=== PATIENT | male | born 1950 | race Caucasian/White ===

== ENCOUNTER → 2019-07-26 08:29 | Outpatient (BNVA) | payer MEDICARE, OTHER, SELFPAY | PROVIDERS: Family Provider Family Medicine; PCP Family Medicine; Referring Provider Nurse Practitioner; Visit Provider Nurse Practitioner | DX: E78.00 Pure hypercholesterolemia, unspecified (principal); I10 Essential (primary) hypertension; F17.200 Nicotine dependence, unspecified, uncomplicated; Z76.89 Persons encountering health services in other specified circumstances | CPT/HCPCS: 80053; 80061; 85025 ==

== ENCOUNTER 2020-10-15 09:55 | Outpatient (CLI) | payer MEDICARE, OTHER, SELFPAY ==
--- NOTE | 2020-10-15 10:17 | XRR_ITS ---
PROCEDURE INFORMATION: Exam: XR Bilateral Hips Exam date and time: 10/15/2020 10:29 AM Age: 70 years old Clinical indication: Condition or disease; Other: Osteoarthritis TECHNIQUE: Imaging protocol: XR bilateral hips. Views: 2 views of hips with pelvis when performed. COMPARISON: CR XR lumbar spine 2-3V* [id number] 10/15/2020 10:33 AM FINDINGS: Bones/joints: No fracture or other acute bone or joint abnormalities are seen in the hips. There is a tiny benign bone cyst in the right subtrochanteric region. No significant degenerative disease or joint space narrowing is seen in the hips. Soft tissues: Unremarkable. XR/XR hip BI 3-4V wo/w pel [id number] IMPRESSION: No significant abnormalities are seen in the hips.
--- NOTE | 2020-10-15 10:18 | XRR_ITS ---
PROCEDURE INFORMATION: Exam: XR Lumbosacral Spine Exam date and time: 10/15/2020 10:29 AM Age: 70 years old Clinical indication: Condition or disease; Other: Osteoarthritis TECHNIQUE: Imaging protocol: XR of the lumbosacral spine. Views: 2 or 3 views. COMPARISON: No relevant prior studies available. FINDINGS: Bones/joints: No fracture or other acute bony abnormalities are seen in the lumbar spine. Chronic degenerative disease is present especially at L4-L5 and L5-S1 with disc space narrowing, sclerosis and osteophytes. There is sclerosis and hypertrophy of the lower lumbar facet joints. Soft tissues: Unremarkable. Organs: Multiple calcifications project on the lower pole of the left kidney. XR/XR lumbar spine 2-3V* [id number] IMPRESSION: 1. Left nephrolithiasis. 2. Chronic degenerative disease especially at L4-L5 and L5-S1.
== END 2020-10-15 09:56 | disposition home or self-care (01) ==
PROVIDERS: PCP Family Medicine; Visit Provider Family Medicine
DX: M19.90 Unspecified osteoarthritis, unspecified site (principal); N20.0 Calculus of kidney; M51.36 Other intervertebral disc degeneration, lumbar region
CPT/HCPCS: 72100; 73522

== ENCOUNTER 2023-05-30 12:58 | Emergency (ER) | payer MEDICARE, OTHER, SELFPAY ==
[2023-05-30 12:59] VITALS: BP 149/78; PULSE 102; TEMP 38.1; O2SAT 92; BMI 30.1
--- NOTE | 2023-05-30 13:07 | XRR_ITS ---
PROCEDURE INFORMATION: Exam: XR Lumbosacral Spine Exam date and time: 05/30/2023 1:28 PM Age: 72 years old Clinical indication: Low back pain; Additional info: Lbp, acute on chronic TECHNIQUE: Imaging protocol: Radiologic exam of the lumbosacral spine. Views: 2 or 3 views. COMPARISON: CR XR lumbar spine 2-3V* [id number] 10/15/2020 10:33 AM FINDINGS: Bones/joints: Spinal alignment is normal. Vertebral body height is maintained. No acute fracture. Moderate lower lumbar disc degeneration. Moderate lower lumbar facet spondylosis. The visible portion of the pelvis and sacrum is intact. Soft tissues: Unremarkable. Vasculature: Moderate aortic calcific plaque. XR/XR lumbar spine 2-3V* [id number] IMPRESSION: 1. No acute findings. 2. Moderate lower lumbar disc and facet degeneration.
--- NOTE | 2023-05-30 13:11 | ED_ITS ---
HPI - Back Pain/Injury 2 General: Chief Complaint: Back Pain/Injury Stated Complaint: LOW BACK PAIN Time Seen by Provider: 05/30/23 13:00 Source: patient and EMS Mode of arrival: EMS Limitations: no limitations History of Present Illness: Patient presents to the emergency department today brought by EMS for evaluation treatment of acute on chronic low back pain. Patient reports a long history of low back issues for which he typically goes to the chiropractor. He reports noticeable improvements of back pain after his chiropractic adjustment. He also reports using Tylenol for his pain with good response. Patient states that over the last week he seems to have acute worsening of his low back pain. EMS stated that he felt his coordination was off however, when asked to explain further, patient reports more of a weakness-for example, he was attempting to pull up his pants today and felt so weak he thought he was going to fall over. Patient denies radiating pain from his back. He denies tingling or numbness into the lower extremities. He has not noticed any swelling in the lower extremities. He does indicate a past medical history of kidney stones requiring lithotripsy. He states that since that time he had this dealt with urinary issues-including incontinence. However, patient denies any acute episodes of incontinence of either bowel or bladder over the past week. Patient denies falls or trauma over the last week. Patient confirms he still takes his atorvastatin and lisinopril but no other chronic medications. He confirms his listed allergy to Celebrex but, does not have allergies to other NSAIDs-he states he uses Tylenol because it seems to work better for his pain. Patient states he would not have come here normally but his chiropractor is on vacation for [place] and his friend called EMS because his friend thought he needed to get checked out. Patient denies pain at this time. Review of Systems 2 General: Reports: 10 or more systems reviewed and unremarkable except in HPI and below PFSH ED 2 PFSH: Medical History Current smoker Hypertension Hypercholesteremia Surgical History History of rotator cuff surgery bilateral Family History Father Cancer Social History Smoking and tobacco/nicotine status: current every day tobacco/nicotine user Alcohol intake: never Substance/Drug Use: never Physical Exam 2 Const: COMMON NORMALS: no acute distress, patient oriented x3 and alert HENMT: COMMON NORMALS: normocephalic, atraumatic and hearing grossly normal bilaterally HEAD & SCALP: normocephalic and atraumatic Eye: COMMON NORMALS: Equal, round and reactive pupils present, EOMs intact bilaterally and conjunctivae normal CONJUNCTIVA: Yes conjunctivae normal P UPIL: Yes Equal, round and reactive pupils present Neck/C-Spine: COMMON NORMALS: full ROM and no JVD Resp: COMMON NORMALS: normal respiratory effort, No retractions and No use of accessory muscles Cardio: COMMON NORMALS: no JVD and regular rate RATE: regular rate Back/Pelvis: OTHER: Patient with reproducible tenderness to the left lower back region. He was nontender on palpation to the upper back/thoracic region on palpation. No specific tenderness at the midline lumbar vertebral column on palpation. BACK IMAGE (MALE): 1. area indicated to have pain by pt Extremity: NARRATIVE EXTREMITY EXAM: Patient demonstrates full range of motion to his extremities. Patient is independently moving in the bed and independently maneuvers from a significantly reclined to a completely seated upright position without difficulty and without assistance. Patient is able to reach behind his back to show me the area to the left lower back where he has the most tenderness and also demonstrates ability to lean [id number] to try and determine the location of his pain. Neuro: COMMON NORMALS: patient oriented x3 SENSORIUM/ORIENTATION: Yes alert Psych: COMMON NORMALS: mental status grossly normal, Normal thought process present, cooperative and normal affect THOUGHT PROCESS: Normal thought process present Skin: COMMON NORMALS: no rashes or lesions noted and turgor normal N ARRATIVE SKIN EXAM: Patient has no edema or pitting edema in the lower extremities. GENERAL SKIN EXAM: no rashes or lesions noted and turgor normal Course 2 Vital Signs: Vital signs: Vital Signs Temperature 98.2 F 05/30/23 14:36 Pulse Rate 76 05/30/23 14:58 Blood Pressure 118/72 05/30/23 14:58 Pulse Oximetry 92 05/30/23 14:58 Oxygen Delivery Me thod Room Air 05/30/23 12:59 MDM - Back Pain/Injury Medical Decision Making Patient's lab work today is unremarkable. Urinalysis is clear. Patient's x-ray shows progression of degenerative disc disease through the lumbar region with progressing osteoarthritic changes now with noticeable facet narrowing as well. Discussed all this with the patient including comparison of a 2020 lumbar film from today. Discussed continued progressive changes which could be causing pinching of nerves locally in the low back but, warned it could also begin to affect the nerves that go down into the lower extremities. Patient had an elevated heart rate and elevated temperature upon arrival however, when I asked the nurse to recheck it his heart rate was 76 and temperature was 98.2. Patient currently has no pain here in the emergency department. However, his is now at bedside and begins telling me about multiple other symptoms she is concerned about. She states that the ambulance was called because the patient was acting confused and could not figure out how to get the [employer] game on television. She continued indicating multiple other concerns she had with the patient's health and in a short amount of time, the patient and the were quite agitated with one another. The stepped out of the room for a bit and the patient tells me that he was confused about the [employer] game because he thought the game started at 1130 (it was at noon), so, when he went to the [employer] channel at 1130 and it was not on he was indeed confused. However, he states he is not having a stroke. Patient showed no signs of neurological deficit, confusion, or slurred speech during his time here in the emergency room. He denies episodes of headache, visual changes, slurred speech, facial weakness, one-sided body weakness, chest pains or shortness of breath. Patient's returned and states that he is having cognitive declines and states that he will not answer her when she asked him questions sometimes and she says he is having TIAs. Patient again states he is taking all of his prescribed medications as he should be and denies symptoms of stroke or AR on reevaluation. I encouraged them to follow-up with primary care doctor in the next few days to have further discussion about the 's concerns as there are no findings of neurological deficit here on exam today and no acute concerns on his evaluation. Patient was offered prescriptions to help with acute on chronic low back pain until his chiropractor returns however, patient declined stating Tylenol works just fine. Patient was given return precautions and reiterated my recommendation to see primary care this week. Patient and verbalized understanding and agreement to treatment plan. Differential Diagnosis Likely lumbar radiculopathy and strain of lumbar region; Unlikely sciatica, renal colic, pyelonephritis or discitis Labs 05/30/23 Unknown 05/30/23 Unknown Radiology Impressions Lumbar Spine X-Ray 05/30/23 13:07 IMPRESSION: 1. No acute findings. 2. Moderate lower lumbar disc and facet degeneration. Laboratory Results WBC 7.56 10^3/uL (3.29-11.43) 05/30/23 Unknown RBC 5.13 10^6/uL (3.85-5.65) 05/30/23 Unknown Hgb 15.50 g/dL (11.27-16.99) 05/30/23 Unknown Hct 47.3 % (37-53) 05/30/23 Unknown MCV 92.2 fl (82-101) 05/30/23 Unknown MCH 30.2 pg (27-33) 05/30/23 Unknown MCHC 32.8 g/dL (30-55) 05/30/23 Unknown RDW 13.1 % (12.1-15.1) 05/30/23 Unknown Plt Count 192 10^3/cmm (157-399) 05/30/23 Unknown MPV 11.3 fL (7.4-10.4) H 05/30/23 Unknown Neut % (Auto) 61.7 % 05/30/23 Unknown Lymph % (Auto) 13.5 % 05/30/23 Unknown [place] % (Auto) 23.0 % 05/30/23 Unknown Eos % (Auto) 0.9 % 05/30/23 Unknown Baso % (Auto) 0.5 % 05/30/23 Unknown Neut # (Auto) 4.66 10^3/uL (1.8-7.7) 05/30/23 Unknown Lymph # (Auto) 1.0 10^3/uL (0.8-4.8) 05/30/23 Unknown [place] # (Auto) 1.7 10^3/uL (0.2-0.9) H 05/30/23 Unknown Eos # (Auto) 0.1 10^3/uL (0.0-0.8) 05/30/23 Unknown Baso # (Auto) 0.0 10^3/uL (0.0-0.1) 05/30/23 Unknown Nucleated RBC % (auto) 0 % 05/30/23 Unknown Nucleated RBCs # 0.0 /100WBC 05/30/23 Unknown Sodium 138 mmol/L (136-145) 05/30/23 Unknown Potassium 3.9 mmol/L (3.5-5.1) 05/30/23 Unknown Chloride 99 mmol/L (98-107) 05/30/23 Unknown Carbon Dioxide 26 mmol/L (22-29) 05/30/23 Unknown Anion Gap 16.9 (5-19) 05/30/23 Unknown BUN 16 mg/dL (8-23) 05/30/23 Unknown Creatinine 1.2 mg/dL (0.7-1.2) 05/30/23 Unknown GFR Calculation Not Reportable 05/30/23 Unknown Glucose 129 mg/dL (65-115) H 05/30/23 Unknown Calculated Osmolality 289 mOsm/kg (285-295) 05/30/23 Unknown Calcium 9.7 mg/dL (8.5-10.5) 05/30/23 Unknown Total Bilirubin 0.6 mg/dL (0.15-1.2) 05/30/23 Unknown AST 33 U/L (0-40) 05/30/23 Unknown ALT 26 U/L (0-41) 05/30/23 Unknown Alkaline Phosphatase 85 U/L (40-130) 05/30/23 Unknown Total Protein 7.3 g/dL (6.6-8.7) 05/30/23 Unknown Albumin 4.6 g/dL (3.5-5.2) 05/30/23 Unknown Globulin 2.7 g/dL (1.3-4.6) 05/30/23 Unknown Urine Color Yellow (Yellow) 05/30/23 12:15 Urine Appearance Clear (CLEAR) 05/30/23 12:15 Urine pH 5 (5-7) 05/30/23 12:15 Ur Specific [place] 1.025 (1.005-1.030) 05/30/23 12:15 Urine Protein Neg (Negative) 05/30/23 12:15 Urine Glucose (UA) Norm (Normal) 05/30/23 12:15 Urine Ketones Negative (Negative) 05/30/23 12:15 Urine Blood Neg (Negative) 05/30/23 12:15 Urine Nitrate Negative (Negative) 05/30/23 12:15 Urine Bilirubin Neg (Negative) 05/30/23 12:15 Urine Urobilinogen Norm mg/dL (Negative) 05/30/23 12:15 Ur Leukocyte Esterase Negative (Negative) 05/30/23 12:15 All radiology interpretation(s) finalized by discharge Discharge Plan Discharge Patient Disposition: Home Clinical Impression: Strain of lumbar region Qualifiers: Encounter type: initial encounter Qualified Code(s): S39.012A - Strain of muscle, fascia and tendon of lower back, initial encounter Condition: Stable Prescriptions: No Action zinc acetate 50 mg (zinc) Capsule 50 mg PO QAM Aspir-81 81 mg Tablet,Delayed Release (Dr/Ec) 81 mg PO BEDTIME Vitamin D3 25 mcg (1,000 unit) Capsule 25 mcg PO QAM Balance Of Nature Fruits 3 cap PO DAILY Balance Of Nature Veggies 3 cap PO DAILY atorvastatin 40 mg tablet 40 mg PO BEDTIME lisinopril-hydrochlorothiazide 10-12.5 mg tablet 1 tab PO BEDTIME Discharge Orders: Discharge ED (Routine); Ordered 05/30/23 Ordered By: Julissa Guaman Referrals: John Serrano MD [Primary Care Provider] - Discharge Diet: Usual diet Discharge Activity: Increase activity as tolerated Patient Instructions: Low Back Strain (ED) Activity Restrictions/Additional Instructions: Lab work today showed no signs of an elevated white blood cell count concerning for an active infection. Urinalysis is clear of any signs of infection as well. Your electrolytes are within normal limits and your kidney function is normal. The x-rays taken today of your low back shows continued progression of degenerative disc disease throughout the lumbar spine. You also have continued progression of osteoarthritic changes and facet narrowing. These can cause issues with pinched nerves which affect nerves in the low back region as well as affecting nerves which go down into your legs. You can use heating pads or ice packs as needed for comfort in addition to Tylenol. You did have a slightly elevated temperature upon arrival here today however, recheck of your vital signs showed resolution of any temperature but I encourage you to continue watching for new onset symptoms. You may have a very early viral illness as we have many here in the community at this time. If you have any change or worsening in your condition we do recommend to be seen and reevaluated. Please follow-up with your primary care this week for recheck of concerns from your evaluation here in the emergency department. Coding Level of Care Code ED [facility] for Zohra Lorenzana
[2023-05-30 13:21] LABS: Basophils % 0.5 %; Eosinophils # 0.1 10^3/uL (0.0-0.8); Eosinophils % 0.9 %; Hematocrit 47.3 % (37-53); Lymphocytes % 13.5 %; Mean Corpuscular HGB Conc 32.8 g/dL (30-55); Mean Corpuscular Hemoglobin 30.2 pg (27-33); Mean Corpuscular Volume 92.2 fl (82-101); Mean Platelet Volume 11.3 fL (7.4-10.4); Monocytes # 1.7 10^3/uL (0.2-0.9); Neutrophils # 4.66 10^3/uL (1.8-7.7); Neutrophils % 61.7 %; Nucleated Red Blood Cells % 0 %; Platelet Count 192 10^3/cmm (157-399); Red Blood Count 5.13 10^6/uL (3.85-5.65); Red Cell Distribution Width 13.1 % (12.1-15.1); White Blood Count 7.56 10^3/uL (3.29-11.43)
[2023-05-30] MEDS: ketorolac 30 mg/mL INJ IVP (13:31)
[2023-05-30 13:46] LABS: Alanine Aminotransferase 26 U/L (0-41); Albumin Level 4.6 g/dL (3.5-5.2); Alkaline Phosphatase 85 U/L (40-130); Anion Gap 16.9 (5-19); Aspartate Amino Transferase 33 U/L (0-40); Blood Urea Nitrogen 16 mg/dL (8-23); Calcium 9.7 mg/dL (8.5-10.5); Carbon Dioxide 26 mmol/L (22-29); Chloride 99 mmol/L (98-107); Creatinine Clr Calc Pharmacy 64.4496; Globulin 2.7 g/dL (1.3-4.6); Glucose 129 mg/dL (65-115); Osmolality Calculated 289 mOsm/kg (285-295); Potassium 3.9 mmol/L (3.5-5.1); Sodium 138 mmol/L (136-145); Total Bilirubin 0.6 mg/dL (0.15-1.2); Total Protein 7.3 g/dL (6.6-8.7)
[2023-05-30 14:22] LABS: Add Urine Microscopic? NO; Charge for UA Resulting for Rev
[2023-05-30 14:26] LABS: Bilirubin Urine Neg (Negative); Blood Urine Neg (Negative); Glucose Urine UA Norm (Normal); Ketones Urine Negative (Negative); Leukocyte Esterase Urine Negative (Negative); Nitrate Urine Negative (Negative); Protein Urine Neg (Negative); Specific Gravity, Urine 1.025 (1.005-1.030); Urine Appearance Clear (CLEAR); Urine Color Yellow (Yellow); Urobilinogen Urine Norm (Negative); pH Urine 5 (5-7)
[2023-05-30 14:36] VITALS: BP 112/53; PULSE 80; TEMP 36.8; O2SAT 90
[2023-05-30 14:58] VITALS: BP 118/72; PULSE 76; O2SAT 92
== END 2023-05-30 15:02 | disposition home or self-care (01) ==
PROVIDERS: Emergency Provider Physician Assistant; PCP Family Medicine
DX: S39.012A Strain of muscle, fascia and tendon of lower back, initial encounter (principal); Z79.82 Long term (current) use of aspirin; I10 Essential (primary) hypertension; Z72.0 Tobacco use; X58.XXXA Exposure to other specified factors, initial encounter
CPT/HCPCS: 72100; 80053; 81003; 85025; 96374; 99284; J1885

== ENCOUNTER → 2023-09-30 09:38 | Outpatient (BNVA) | payer MEDICARE, SELFPAY | PROVIDERS: PCP Family Medicine; Visit Provider Family Medicine | DX: I10 Essential (primary) hypertension (principal); E78.00 Pure hypercholesterolemia, unspecified; E16.2 Hypoglycemia, unspecified | CPT/HCPCS: 80053; 80061; 83036; 85025 ==

== ENCOUNTER → 2024-01-10 08:07 | Outpatient (BNVA) | payer MEDICARE, SELFPAY | PROVIDERS: PCP Family Medicine; Visit Provider Family Medicine | DX: E11.9 Type 2 diabetes mellitus without complications (principal) | CPT/HCPCS: 83036 ==

== ENCOUNTER 2024-01-13 08:21 | Outpatient (CLI) | payer MEDICARE, SELFPAY ==
--- NOTE | 2024-01-13 08:27 | XR_ITS ---
WS: [id number] AP pelvis, bilateral hips, 2 views each, 01/13/2024 Clinical Data: hip pain Comparison: Bilateral hips, 10/15/2020 Findings: Both hips show no erosion, sclerosis, narrowing, cyst formation or loss of the normal spherical outli ne of the femoral heads. Both hips show small acetabular lips. The adjacent pelvis is unremarkable. T here is osteoarthritic change of the lower lumbar vertebral bodies. The SI joints and soft tissues ar e normal. 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
== END 2024-01-13 08:22 | disposition home or self-care (01) ==
LOC: RAD 08:23
PROVIDERS: PCP Family Medicine; Visit Provider Family Medicine
DX: M25.552 Pain in left hip (principal); M25.551 Pain in right hip; M16.0 Bilateral primary osteoarthritis of hip
CPT/HCPCS: 73521

== ENCOUNTER → 2024-07-20 08:07 | Outpatient (BNVA) | payer MEDICARE, SELFPAY | PROVIDERS: PCP Family Medicine; Visit Provider Family Medicine | DX: E78.00 Pure hypercholesterolemia, unspecified (principal); R73.9 Hyperglycemia, unspecified; I10 Essential (primary) hypertension; E16.2 Hypoglycemia, unspecified | CPT/HCPCS: 80053; 80061; 83036 ==

== ENCOUNTER → 2025-05-28 16:09 | Outpatient (BNVA) | payer MEDICARE, SELFPAY | PROVIDERS: PCP Family Medicine; Visit Provider Family Medicine | DX: I10 Essential (primary) hypertension (principal); I73.9 Peripheral vascular disease, unspecified; M19.90 Unspecified osteoarthritis, unspecified site | CPT/HCPCS: 80053; 84550; 85025; 85651; 86140; 86160; 86162; 86235; 86255; 86376; 86431 ==

== ENCOUNTER 2025-05-30 09:31 | Outpatient (CLI) | payer MEDICARE, SELFPAY ==
--- NOTE | 2025-05-30 09:30 | USR_ITS ---
PROCEDURE INFORMATION: Exam: US Bilateral Noninvasive Physiologic Study of the Lower Extremity Arteries, Limited Exam date and time: 05/30/2025 10:34 AM Age: 74 years old Clinical indication: Pain; Leg, lower; Bilateral; Additional info: Claudication TECHNIQUE: Imaging protocol: Bilateral Limited bilateral noninvasive physiologic studies of lower extremity arteries. Waveforms were obtained and evaluated. Images were documented and archived. Exam is limited. COMPARISON: No relevant prior studies available. FINDINGS: Right Ankle-Brachial Index: 1.18 (PT); 1.10 (DP) Left Ankle-Brachial Index: 1.10 (PT); 0.78 (DP) US/CV ankle brachial index [id number] IMPRESSION: No evidence of hemodynamically significant peripheral artery disease.
== END 2025-05-30 09:32 | disposition home or self-care (01) ==
LOC: RAD 09:35
PROVIDERS: PCP Family Medicine; Visit Provider Family Medicine
DX: I73.9 Peripheral vascular disease, unspecified (principal)
CPT/HCPCS: 93922